=== PATIENT | male | born 1965 | race Caucasian/White ===

== ENCOUNTER 2023-09-14 07:39 | Day surgery (SDC) | payer MEDICARE, OTHER ==
[~2023-09-14] VITALS: Ht 182.9 cm; Wt 72.7 kg
[2023-09-14] VITALS (11 sets, daily range): BP systolic 110–137; BP diastolic 82–108
[~2023-09-14 07:39] MED LIST: AMLO5 PO; ASPI81CH PO; ATOR40TA PO; CYCL10 PO; CefOXitin Sodium 2,000 MG in NS 50 ML IV SCH; DEPO-TESTO200 MG/1 M; DOXY100 PO; HYDCHL25 PO; Lactated Ringer's 1,000 ML IV SCH; METO25 PO; Percocet 10-321 EACH PO; SILD25T PO; TIOT18 INH; VITAMIN D310 MC4 PO
[2023-09-14] MEDS ORDERED: FentaNYL Citrate 50 MCG/ML 2 ML Injection ONE ×2 (08:02→09:44)
[2023-09-14] MEDS ORDERED: propofoL 20 ML IV ONE (08:02)
[2023-09-14] MEDS ORDERED: Midazolam HCl 1MG / ML 2ML Vial IV PRN (08:05)
[2023-09-14] MEDS ORDERED: Lidocaine HCl 1% 5 ML SYR INJ ONE (08:05)
[2023-09-14] MEDS ORDERED: Bupivacaine 0.5% HCl 5 MG/ML 30MLVIAL ONE (08:47)
[2023-09-14] MEDS ORDERED: Ondansetron HCl 2 MG / ML 2ML Vial ONE (09:18)
[2023-09-14] MEDS ORDERED: Dexamethasone Sod Phos 10 MG/ML 1ML VIAL ONE (09:18)
[2023-09-14] MEDS ORDERED: Triple Antibiotic Ointment 30 gm ONE (09:26)
[2023-09-14] MEDS ORDERED: OxyCODONE 5 mg/Acetamin 325 mg TABLET PO PRN (09:55)
--- NOTE | 2023-09-14 10:09 | NUR ---
PT TO DAY SURGERY STEP DOWN FROM PACU; BEDSIDE REPORT RECEIVED. PT IS AWAKE, ALERT AND OREINETED; ABLE TO MOVE SELF IN BED. VSS. PT DENIES PAIN AT THIS TIME. PT HAS DISSOVABLE ANAL STITCHES AND GUAZE WITH UNDERWEAR COVERING, C/D/I.
--- NOTE | 2023-09-14 10:20 | NUR ---
PT TOLERATING PO FLUIDS WELL.
--- NOTE | 2023-09-14 10:29 | NUR ---
PT TOLERATING PO FLUIDS WELL. DENIES CRACKERS. Discharge instructions reviewed with patient. Patient verbalizes understanding. Copy given to patient to take home. Sitz bath equipment shown and given to pt to take home. Patient States Post-Procedure ride home has been arranged.
--- NOTE | 2023-09-14 10:39 | NUR ---
PT UP TO BATHROOM
--- NOTE | 2023-09-14 10:39 | NUR ---
Patient up to Ambulate independently. Gait steady.
--- NOTE | 2023-09-14 10:43 | NUR ---
Discharged via wheelchair to private car for ride home.
== END 2023-09-14 10:44 | disposition home or self-care (01) ==
LOC: ORSCMMR 07:39 → ORD 09:00 → ORSCMMR 09:00
PROVIDERS: Surgery
PROC: 0HB9XZZ Excision of Perineum Skin, External Approach (ICD-10-PCS; principal; 2023-09-14 09:00)
PROC: 06BY0ZC Excision of Hemorrhoidal Plexus, Open Approach (ICD-10-PCS; principal; 2023-09-14 09:00)
DX: K64.4 Residual hemorrhoidal skin tags (principal); K64.8 Other hemorrhoids; I25.10 Atherosclerotic heart disease of native coronary artery without angina pectoris; F17.210 Nicotine dependence, cigarettes, uncomplicated; J44.9 Chronic obstructive pulmonary disease, unspecified; E78.5 Hyperlipidemia, unspecified; I10 Essential (primary) hypertension; Z79.899 Other long term (current) drug therapy
CPT/HCPCS: 88304; A9270; J0694; J1100; J2405; J2704; J3010; J7120